=== PATIENT | male | born 1990 | race Two or more races ===

== ENCOUNTER 2022-05-01 21:56 | Emergency (ER) | payer OTHER ==
[~2022-05-01] VITALS: Ht 180.3 cm; Wt 89.0 kg
[2022-05-01 22:45] VITALS: BP 119/42
[2022-05-02] MEDS ORDERED: CYCL-837 PO (00:30)
[2022-05-02] MEDS ORDERED: IBUP800T26 PO (00:30)
== END 2022-05-02 00:55 | disposition home or self-care (01) ==
LOC: ER 22:01
DX: S13.4XXA Sprain of ligaments of cervical spine, initial encounter (principal); S00.01XA Abrasion of scalp, initial encounter; M25.552 Pain in left hip; V43.62XA Car passenger injured in collision with other type car in traffic accident, initial encounter; Y93.89 Activity, other specified; Y92.488 Other paved roadways as the place of occurrence of the external cause; Y99.8 Other external cause status
CPT/HCPCS: 70450; 72192